=== PATIENT | male | born 1940 | race Caucasian/White ===

== ENCOUNTER 2016-08-12 16:34 | Inpatient (IN) ==
[2016-08-12] MEDS ORDERED: NS 1,000 ML IV SCH (17:24)
[2016-08-12 17:55] LABS: MANUAL DIFF NEEDED? NO
[2016-08-12 17:57] LABS: BASO% 0.4 % (0.0-0.8); EOS# 0.21 X1000 (0.0-0.7); HEMATOCRIT 42.4 % (42.0-52.0); HEMOGLOBIN 13.8 g/dL (14.0-18.0); IMM GRAN# 0.11 X1000 (0.0-0.04); LYMPH# 1.01 X1000 (1.2-3.4); LYMPH% 9.5 % (20.5-51.1); MCHC 32.5 g/dL (33-37); MCV 92.2 FL (81-99); MONO# 0.74 X1000 (0.11-0.59); MPV 8.8 FL (7.4-10.4); NEUT% 80.1 % (42.2-75.2); PLT 324 X1000 (130-400)
[2016-08-12 18:12] LABS: ALBUMIN 3.7 g/dL (3.5-5.0); CALCIUM 9.9 mg/dL (8.8-10.2); POTASSIUM 3.6 mmol/L (3.5-5.1); TOTAL BILIRUBIN 0.45 mg/dL (0.20-1.00); TOTAL PROTEIN 7.1 g/dL (6.3-8.3)
--- NOTE | 2016-08-12 19:32 | HISTORY AND PHYSICAL ---
HISTORY OF PRESENT ILLNESS: Mr. 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 Over the past 7-10 days, he has had intermittent episodes of nausea, vomiting and explosive, watery diarrhea. He had been treated for urinary tract infection with Levaquin while at the skilled nursing. He had made slow progress with physical therapy and was ambulating in the halls with the use of a walker. As stated earlier, he had a recent lumbar laminectomy. Over the past 48 hours, his nausea, vomiting and diarrhea have intensified. He has had a low-grade fever and chills. A flat and upright abdominal film obtained by the skilled nursing yesterday demonstrated no evidence of obstruction. PAST MEDICAL HISTORY: As above. PAST SURGICAL HISTORY: Appendectomy, cholecystectomy, umbilical hernia repair. Radical prostatectomy. Suprapubic catheter. Lumbar fusion. Lumbar laminectomy. ALLERGIES: Flagyl FAMILY HISTORY: Father in an MVA at age 52. His mother had coronary artery disease, status post NE and hypertension. SOCIAL HISTORY: He is a former smoker. He does consume alcoholic beverages. He is and lives with his spouse. MEDICATIONS: Aspirin 81 mg daily. Atorvastatin 40 mg at bedtime. Carvedilol 3.125 mg b.i.d. Plavix 75 mg daily. Dexilant 60 mg daily. Glipizide XL 10 mg b.i.d. Hydrochlorothiazide 12.5 mg daily. Eprosartan 300 mg daily. Mobic 15 mg daily. Paxil 10 mg daily. Victoza 1.8 mg daily. Zyloprim 300 mg daily. Gabapentin 100 mg t.i.d. Jardiance 1 p.o. daily. REVIEW OF SYSTEMS: General: He denies any recent weight gain or weight loss. HEENT: Wears glasses. He is hard of hearing. CARDIOVASCULAR: No chest pain, palpitations, or anginal equivalents. Pulmonary: No shortness of breath, PND, orthopnea. GI: No reflux, dysphagia, melena, hematochezia, change in bowel habits, or rectal bleeding. Endocrine: No polyuria, no polydipsia. Skin: No easy bruisability. : No leakage of urine with coughing or laughing. Neurologic: No migraines or seizures. Psychiatric: He has a history of depression. PHYSICAL EXAMINATION: GENERAL: This is a well-developed well-nourished 76-year-old gentleman in no apparent distress. VITAL SIGNS: Temperature 98.4 degrees, pulse 76, respirations 16, blood pressure 146/72. HEENT: Fundi with arteriolar wall thickening. Pupils equal, round, reactive to light. Extraocular eye movements intact. TMs without bullae. NECK: Supple. No masses, JVD or bruits. CARDIOVASCULAR: Regular rate and rhythm without murmur. LUNGS: Clear. ABDOMEN: Mild right upper quadrant and epigastric tenderness to deep palpation. No rebound or guarding. EXTREMITIES: Trace ankle edema. SKIN: No palpable purpura. AND RECTAL: Exam is deferred. NEUROLOGIC: Decreased light touch in the distal extremities bilaterally. LABORATORY: A CBC demonstrated white count 10.63, hemoglobin 13.8, hematocrit 42.4, and a platelet count of 324,000. CMP demonstrates the following: Sodium 132, potassium 3.6, chloride 92, BUN 27, creatinine 1.4, glucose 110, AST 20, ALT 12. Amylase 129, and lipase 155. ASSESSMENT: 1. Abdominal pain, secondary to mild pancreatitis. 2. Volume depletion, secondary to intractable nausea, vomiting, and diarrhea. 3. Type 2 diabetes mellitus, complicated by polyneuropathy. 4. Essential hypertension. 5. History of ischemic heart disease. PLAN: I am going to admit the patient to [facility]. I will begin normal saline at 125 mL per hour. We will follow strict input and output . I am going to hold him nothing per oral. We will check an ultrasound of the gallbladder in the morning. Gallstones are the most common etiology causing acute pancreatitis. I am also going to hold the hydrochlorothiazide. I will recheck an amylase, lipase and CMP in the morning. While he is on nothing by mouth, I am going to hold the glipizide and Jardiance. I will place him on patterned sugars and a Humulin R sliding scale. His blood pressure is stable and I will continue his current regimen of medications. At this point in time, I believe that admission to the hospital for fluid resuscitation and further management of the etiology of his mild pancreatitis is both reasonable and necessary. I anticipate that he will be in the hospital for at least 1 midnight and I will, therefore, place him in outpatient services with observation services. I will begin Lovenox 40 mg subcutaneously daily as deep venous thrombosis prophylaxis. cc: Franck Garcia MD
[2016-08-12] MEDS ORDERED: ZOFRAN IV PRN (20:01)
[2016-08-12] MEDS ORDERED: TRICOR PO ONE (20:01)
[2016-08-12] MEDS: ZOSYN 4.5 GM/NS 4.5 GM/100 ML IVPB IV SCH (22:00)
[2016-08-13] MEDS: COREG PO SCH ×3 (00:47→21:40)
[2016-08-13] MEDS: TYLENOL PO PRN (00:47)
[2016-08-13] MEDS: DESYREL PO PRN (00:47)
[2016-08-13] MEDS: LOVENOX SUBQ SCH ×2 (00:48→21:40)
[2016-08-13] MEDS: LIPITOR PO SCH ×2 (00:48→21:40)
[2016-08-13] MEDS ORDERED: NORCO-10 PO PRN (02:40)
[2016-08-13] MEDS ORDERED: MORPHINE IV PRN (02:41)
[2016-08-13] MEDS ORDERED: MORPHINE ONE (02:46)
[2016-08-13] MEDS: ZOSYN 4.5 GM/NS 4.5 GM/100 ML IVPB IV SCH (02:51)
[2016-08-13] MEDS: HUMULIN R SUBQ SCH ×4 (02:57→18:54)
[2016-08-13 03:43] LABS: ALBUMIN 3.4 g/dL (3.5-5.0); CALCIUM 9.2 mg/dL (8.8-10.2); POTASSIUM 3.5 mmol/L (3.5-5.1); TOTAL BILIRUBIN 0.44 mg/dL (0.20-1.00); TOTAL PROTEIN 6.2 g/dL (6.3-8.3)
[2016-08-13] MEDS ORDERED: NORCO-5 PO PRN (08:07)
--- NOTE | 2016-08-13 08:17 | Diag Imaging Result Doc PS360 ---
EXAM: US ABDOMEN-COMPLETE HISTORY: NAUSEA, VOMITING, PANCREATITIS TECHNIQUE: Transabdominal COMMENT: The visualized portion of the body of the pancreas is unremarkable, the remainder is obscured. The liver is hyperechoic and very poor detail is seen in portions of liver due to the patient's body habitus. There is some sediment and soft stones present in the neck of the gallbladder. There is no sonographic Mccray sign. There is antegrade flow in the portal vein. There is no evidence of biliary dilatation the common bile duct measuring 6 mm. The spleen is not enlarged. There are no abnormal fluid collections. There is no evidence of hydronephrosis. There is a 1.8 cm cyst in the upper pole of the left kidney. IMPRESSION: Hepatic steatosis. Cholelithiasis. Electronically signed by Jacques Chu 08/13/2016 8:15 AM
[2016-08-13] MEDS ORDERED: INSULIN PEN NEEDLES ONE (08:28)
--- NOTE | 2016-08-13 08:29 | PROGRESS NOTE ---
DATE: 08/13/2016 SUBJECTIVE: Mr. Montaño continues with persistent nausea and mild right upper quadrant and epigastric discomfort. The ultrasound of the abdomen demonstrates gallstones without common bile duct dilatation. Lipase is still mildly elevated at 159. Blood sugars are ranging from 110-120. He denies any polyuria, polydipsia or episodes of symptomatic hypoglycemia. OBJECTIVE: Vital signs: Temperature 98.1 degrees, pulse 65, respirations 20, BP 117/60. CV: Regular rate and rhythm. Lungs: Clear. Abdomen: Mild epigastric and right upper quadrant tenderness to deep palpation. No rebound or guarding. ASSESSMENT AND PLAN: 1. Mild pancreatitis. We will continue to hold him on nothing by mouth and will cautiously rehydrate him with normal saline. We will use Zofran as needed for nausea and vomiting. Ultrasound of the gallbladder demonstrated gallstones without common bile duct dilatation. We will proceed with a HIDA scan with cholecystokinin. I suspect that the gallbladder is the etiology of the mild pancreatitis, and that he will ultimately need a cholecystectomy. 2. Hypertension. His blood pressure is stable. We will continue his current regimen of medications. 3. Type 2 [id number] diabetes mellitus complicated by polyneuropathy. We will continue pattern sugars, Humulin R sliding scale, and the Victoza. I will continue to hold the glipizide and Jardiance. cc: Franck Garcia MD
[2016-08-13] MEDS ORDERED: VICTOZA SUBQ SCH (09:00)
[2016-08-13] MEDS ORDERED: PLAVIX PO SCH (09:00)
[2016-08-13] MEDS ORDERED: PAXIL PO SCH (09:00)
[2016-08-13] MEDS ORDERED: WELCHOL PO SCH (09:00)
[2016-08-13] MEDS ORDERED: STERILE WATER INJ. ONE (14:31)
[2016-08-13] MEDS ORDERED: NS 500 ML ONE (14:36)
--- NOTE | 2016-08-13 15:57 | Diag Imaging Result Doc PS360 ---
EXAM: HIDA SCAN W/ EJECTION FRACTION - 08/13/2016 HISTORY: RUQ ABDOMINAL PAIN WITH GALLSTONES TECHNIQUE: Exam performed using 5.4 mCi technetium 99m Choletec ministration intravenously. COMPARISON: None. FINDINGS: There is prompt tracer uptake by the liver with relatively prompt tracer excretion by the liver and appearance of tracer into small bowel. There is mildly delayed visualization of the gallbladder, with gallbladder activity first visible about 32 minutes following tracer ministration. Gallbladder ejection fraction is calculated following administration of by mouth liquid ensure. The ejection fraction is calculated at 96%. IMPRESSION: Mildly delayed visualization of gallbladder. Normal gallbladder ejection fraction at 96%. Electronically signed by Jace Gonzalez 08/13/2016 3:55 PM
--- NOTE | 2016-08-13 17:39 | PROGRESS NOTE ---
DATE: 08/13/2016 SUBJECTIVE: Mr. Montaño was admitted to [facility] with intractable nausea, vomiting, and diarrhea. He was noted to have mild pancreatitis. His lipase has increased from 155 to 159 today. An ultrasound of the gallbladder demonstrated steatosis and cholelithiasis. He did have sediment and soft stones present in the neck of the gallbladder but there was no evidence of biliary dilatation. A follow-up HIDA scan with CCK demonstrated normal gallbladder ejection fraction of 96%. He has been taking Jardiance and HCTZ. OBJECTIVE: Vital Signs: BP 123/81, pulse 82, respirations 18. Cardiovascular: Regular rate and rhythm. Lungs: Clear. Abdomen: Mild epigastric and right upper quadrant tenderness to deep palpation. No rebound or guarding. ASSESSMENT AND PLAN: 1. Acute pancreatitis. He does have soft gallstones and sediment. There is no common bile duct dilatation. A HIDA scan with CCK was within normal limits. At this point there is no conclusive evidence that the pancreatitis is secondary to the gallstones. He is taking hydrochlorothiazide and Jardiance which can both cause pancreatitis. I will stop both of those medicines. I will advance him to a GI soft diet and recheck a lipase in the morning. 2. Type 2 [id number] diabetes mellitus complicated by polyneuropathy. I will continue pattern sugars and Humulin R sliding scale. I will stop the Jardiance and Victoza because of the nausea. We will adjust his medicines as indicated. 3. Given the patient's comorbid conditions and clinical presentation, I anticipate that further hospitalization is necessary. I anticipate that he will be in the hospital for at least 2 midnights and I will, therefore, place him in inpatient status. cc: Franck Garcia MD
[2016-08-13] MEDS: ROBAXIN PO SCH ×2 (18:42→18:47)
[2016-08-13] MEDS: WELCHOL PO SCH ×2 (18:43→18:47)
[2016-08-13] MEDS: ASPIRIN EC PO SCH (18:44)
[2016-08-13] MEDS: AVAPRO PO SCH (18:45)
[2016-08-13] MEDS: ZYLOPRIM PO SCH (18:45)
[2016-08-13] MEDS: TRICOR PO SCH (18:46)
[2016-08-13] MEDS: DEXILANT PO SCH (18:46)
[2016-08-13] MEDS: PAXIL PO SCH (18:49)
[2016-08-14] MEDS: HUMULIN R SUBQ SCH ×5 (00:49→21:16)
[2016-08-14 07:12] LABS: LIPASE 128 U/L (13-60)
[2016-08-14] MEDS: WELCHOL PO SCH ×4 (08:38→16:26)
[2016-08-14] MEDS: PAXIL PO SCH (08:38)
[2016-08-14] MEDS: ROBAXIN PO SCH ×4 (08:39→16:16)
[2016-08-14] MEDS: DEXILANT PO SCH (08:40)
[2016-08-14] MEDS: ASPIRIN EC PO SCH (08:40)
[2016-08-14] MEDS: TRICOR PO SCH (08:40)
[2016-08-14] MEDS: ZYLOPRIM PO SCH (08:40)
[2016-08-14] MEDS: COREG PO SCH ×2 (08:40→21:16)
[2016-08-14] MEDS: AVAPRO PO SCH (08:40)
[2016-08-14] MEDS ORDERED: VITAMIN D PO SCH (09:00)
--- NOTE | 2016-08-14 09:15 | PROGRESS NOTE ---
DATE: 08/14/2016 SUBJECTIVE: Mr. Montaño was admitted to [facility] with intractable nausea, vomiting and diarrhea. He was noted to have mild pancreatitis. His lipase is trending down. His lipase was 128 this morning. He is not having any further nausea or vomiting, but did have some intermittent diarrhea this morning. He seems to be tolerating GI soft diet. He does have a history of type 2 diabetes mellitus. He had been taking glipizide, Jardiance for his underlying diabetes. Jardiance can cause pancreatitis, and we stopped the Jardiance. A random blood sugar this morning was 157 with a corresponding insulin level 7.2. It appears that he is making inadequate amounts of insulin and will now require insulin therapy for the management of his underlying sugars. He has had a recent lumbar laminectomy and is able to walk short distances with assistance. He is still not independent from a physical standpoint. He had been undergoing rehab at [facility] in [place], [place]. OBJECTIVE: Vital Signs: Temperature 98.1 degrees, pulse 66, respirations 18, BP 150/72. CV: Regular rate and rhythm. Lungs: Clear. Abdomen: Mild epigastric tenderness to deep palpation. No rebound or guarding. He has good bowel sounds. ASSESSMENT AND PLAN: 1. Acute pancreatitis. Clinically he is better. An ultrasound of the gallbladder demonstrated gallstones without any evidence of common bile duct dilatation. A HIDA scan with cholecystokinin was unremarkable. I suspect that the pancreatitis was due to underlying medications including hydrochlorothiazide and Jardiance. We will continue a gastrointestinal soft diet and monitor him clinically. 2. Type 2 insulin-dependent diabetes mellitus. We will begin Novolin 70/30 five units subcutaneously twice daily with meals. I would like to see his morning sugars in the range of 80-120 and his postprandial sugars less than 140. As he is not producing adequate amounts of insulin, I will stop the glipizide. 3. Lumbar spinal stenosis status post recent lumbar surgery. We will continue physical therapy. If he is not able to achieve independence, we will make a referral for him to be evaluated by [facility]. If he is able to make appropriate response to physical therapy, we will make arrangements for him to have outpatient physical therapy. cc: Franck Garcia MD
[2016-08-14] MEDS: HUMULIN 70/30 SUBQ SCH (16:26)
[2016-08-14] MEDS: TYLENOL PO PRN (21:16)
[2016-08-14] MEDS: LIPITOR PO SCH (21:16)
[2016-08-15] MEDS: LOVENOX SUBQ SCH ×2 (03:17→20:49)
[2016-08-15] MEDS: HUMULIN R SUBQ SCH ×3 (06:03→17:22)
[2016-08-15] MEDS: HUMULIN 70/30 SUBQ SCH ×2 (06:46→17:22)
[2016-08-15] MEDS: WELCHOL PO SCH ×3 (08:33→17:23)
[2016-08-15] MEDS: ROBAXIN PO SCH (08:33)
[2016-08-15] MEDS: TRICOR PO SCH (08:34)
[2016-08-15] MEDS: DEXILANT PO SCH (08:34)
[2016-08-15] MEDS: ZYLOPRIM PO SCH (08:34)
[2016-08-15] MEDS: PAXIL PO SCH (08:35)
[2016-08-15] MEDS: ASPIRIN EC PO SCH (08:35)
--- NOTE | 2016-08-15 10:57 | PROGRESS NOTE ---
DATE: 08/15/2016 SUBJECTIVE: He is feeling better. He was sitting up in a lounge chair. He has no more abdominal pain. He is eating a soft diet and tolerating it well. OBJECTIVE: Vital Signs: He remains afebrile with temperature 98.1 degrees, pulse 86, respirations 20, blood pressure 85 to 150 over 68 to 72. Lungs: Clear in all lung antonio. Cardiovascular: Regular rhythm and rate, without murmur or S3. Abdomen: Soft. Skin: Warm and dry. LABORATORY DATA: Blood sugar 160, 191, 183. No new lab today. ASSESSMENT AND PLAN: 1. Acute pancreatitis, clinically better. Ultrasound of the gallbladder demonstrated gallstones without any evidence of common bile duct dilatation. HIDA scan with cholecystokinin was unremarkable. Suspect pancreatitis due to underlying medications, including hydrochlorothiazide and Jardiance, which have been stopped. Continue a soft diet, which he is tolerating. 2. Diabetes mellitus, type 2. Sugars appear under good control. He was begun on Novolin 70/30, 5 units subcutaneous b.i.d. with meals and will adjust that. 3. Lumbar spinal stenosis, status post recent lumbar surgery. He has left foot drop. 4. Weakness. Make sure he is walking around and strength is good. Continue physical therapy. REVIEW OF MEDICATIONS: He is on trazodone 50 mg at bedtime. Vitamin D at 50,000 units, I think, once a week. Paxil 10 mg a day. Robaxin 750 mg p.o. t.i.d. Avapro 300 mg p.o. daily. I may cut down his Avapro to 150. Insulin 70/30, 5 units before every meal. He has hydrocodone 5 mg for pain. TriCor 48 mg p.o. daily. I think it would be worthwhile to check his cholesterol profile and his triglycerides. Also, we will check his thyroid T4 and TSH, and B12 and folate. cc: MD Franck Frye MD
[2016-08-15] MEDS: COREG PO SCH ×2 (11:49→21:00)
[2016-08-15 16:41] LABS: URINE CULTURE NEEDED? NO; URINE SOURCE CLEAN CATCH
[2016-08-15 16:45] LABS: BILIRUBIN URINE NEGATIVE (NEGATIVE); BLOOD URINE NEGATIVE (NEGATIVE); COLOR STRAW; GLUCOSE URINE TRACE mg/dL (NEGATIVE); LEUKOCYTES URINE NEGATIVE (NEGATIVE); NITRITE URINE NEGATIVE (NEGATIVE); PH URINE 5.5; PROTEIN URINE NEGATIVE (NEGATIVE); SP GRAVITY URINE 1.005; TURBIDITY URINE CLEAR (CLEAR); UROBILINOGEN URINE NORMAL (NORMAL)
[2016-08-15 16:48] LABS: UR EPITHELIAL CELLS <10 /HPF (<10); URINE BACTERIA NEGATIVE /HPF; URINE MICRO REVIEW NEEDED? YES; URINE RBC <10 /HPF (<10); URINE WBC <10 /HPF (<10)
[2016-08-15] MEDS: DESYREL PO PRN (20:49)
[2016-08-15] MEDS: LIPITOR PO SCH (20:49)
[2016-08-16] MEDS: HUMULIN R SUBQ SCH ×4 (00:47→16:24)
[2016-08-16] MEDS: TYLENOL PO PRN (01:03)
[2016-08-16 07:07] LABS: HEMOGLOBIN A1C 6.3 % (4.8-6.0)
[2016-08-16 07:34] LABS: AGAP 14; ALBUMIN 3.1 g/dL (3.5-5.0); ALKALINE PHOSPHATASE 97 U/L (32-122); AMYLASE 88 U/L (20-200); BUN 37 mg/dL (8-22); CALCIUM 9.2 mg/dL (8.8-10.2); CHLORIDE 106 mmol/L (98-107); COSMO 292; GOT 12 U/L (10-34); GPT 8 U/L (10-44); HDL 35 mg/dL (35-55); LDL 36 mg/dL; LIPASE 110 U/L (13-60); POTASSIUM 4.1 mmol/L (3.5-5.1); SODIUM 141 mmol/L (136-145); TCO2 21 mmol/L (25-35); TOTAL BILIRUBIN 0.27 mg/dL (0.20-1.00); TOTAL PROTEIN 5.8 g/dL (6.3-8.3); TRIGLYCERIDES 207 mg/dL (39-160); VLDL 41 mg/dL
[2016-08-16 08:08] LABS: FREE T4 1.29 ng/dL (0.93-1.70)
[2016-08-16] MEDS: PAXIL PO SCH (09:48)
[2016-08-16] MEDS: WELCHOL PO SCH ×3 (09:48→16:35)
[2016-08-16] MEDS: DEXILANT PO SCH (09:48)
[2016-08-16] MEDS: ASPIRIN EC PO SCH (09:48)
[2016-08-16] MEDS: COREG PO SCH ×2 (09:48→20:08)
[2016-08-16] MEDS: ZYLOPRIM PO SCH (09:48)
[2016-08-16] MEDS: TRICOR PO SCH (09:49)
[2016-08-16] MEDS: HUMULIN 70/30 SUBQ SCH ×2 (09:50→16:35)
--- NOTE | 2016-08-16 11:41 | PROGRESS NOTE ---
DATE: 08/16/2016 SUBJECTIVE: Mr. Montaño is feeling better. He said I am ready to go home. He does feel stronger. He is eating well. He has a good appetite. OBJECTIVE: Vital signs: Temp 97.7 degrees, pulse 72, respirations 20, blood pressure 114/55. Neck: CVP less than 6 cm. Lungs: Clear in all lung antonio. Cardiovascular: Regular rhythm and rate without murmur or S3. Abdomen: Soft. Skin: Warm and dry. : Good urine output, 3.5 L. LABS: No new CBC but electrolytes today. Sodium 141, potassium 4.1, chloride 106, bicarb 21, BUN 23, creatinine 1.3. Blood sugar 173, 135, 134, so very good. ASSESSMENT AND PLAN: 1. Acute pancreatitis. Clinically better. Ultrasound of the gallbladder demonstrated gallstones. No evidence of common bile duct dilatation. HIDA scan with cholecystokinin was unremarkable. Suspect medications involved and have adjusted those medications. Stop the hydrochlorothiazide and the Jardiance. Blood sugars appear well-controlled. 2. Diabetes mellitus type 2. Sugars is under good control. Made some adjustments. He is on Novolin 70/30 5 units subcutaneously b.i.d. 3. Lumbar spinal stenosis, aware. 4. General weakness, deconditioning, improving. Wants to get home health. He wants to get [facility] involved. Serum creatinine is 1.3. Reviewed his orders; I do not see any changes. cc: MD Franck Frye MD
[2016-08-16] MEDS: LIPITOR PO SCH (20:08)
[2016-08-16] MEDS: LOVENOX SUBQ SCH (20:08)
[2016-08-17] MEDS: HUMULIN R SUBQ SCH ×3 (01:27→11:25)
[2016-08-17 07:49] VITALS: BP 147/73
[2016-08-17] MEDS: WELCHOL PO SCH ×2 (09:07→12:50)
[2016-08-17] MEDS: PAXIL PO SCH (09:07)
[2016-08-17] MEDS: COREG PO SCH (09:07)
[2016-08-17] MEDS: TRICOR PO SCH (09:07)
[2016-08-17] MEDS: ZYLOPRIM PO SCH (09:07)
[2016-08-17] MEDS: DEXILANT PO SCH (09:07)
[2016-08-17] MEDS: ASPIRIN EC PO SCH (09:07)
[2016-08-17] MEDS: HUMULIN 70/30 SUBQ SCH (09:11)
[2016-08-17] MEDS ORDERED: INSULIN PEN NEEDLES ONE (14:33)
[2016-08-17] MEDS ORDERED: HUMULIN 70/30 SUBQ SCH (17:00)
[2016-08-18] MEDS ORDERED: CELEXA PO SCH (09:00)
--- NOTE | 2016-08-19 06:22 | DISCHARGE SUMMARY ---
ADMISSION DATE: 08/12/2016 DISCHARGE DATE: 08/17/2016 DISCHARGE DIAGNOSES: 1. Acute pancreatitis. 2. Type 2 insulin-dependent diabetes mellitus complicated by diabetic polyneuropathy. 3. Essential hypertension. 4. Atherosclerotic heart disease without angina. 5. Chronic gout. 6. Gastroesophageal reflux disease. 7. Chronic low back pain secondary to lumbar spinal stenosis, status post recent lumbar laminectomy. DISCHARGE INSTRUCTIONS: 1. Return to clinic in 1 week to see me, Dr. Miguel Garcia, in anticipation of a transition of care visit. 2. Activity as tolerated. 3. An 1800 calorie, ADA, bland diet. MEDICATIONS: Atorvastatin 40 mg at bedtime, Coreg 3.125 mg b.i.d., vitamin D2 50,000 units Wednesday, Wednesday, Wednesday, [place] 5 one q.4-6 hours p.r.n. pain, Humulin 70/30 10 units subcutaneously b.i.d., Paxil 20 mg daily, fenofibrate 48 mg daily, meloxicam 15 mg daily, eprosartan 300 mg daily, Plavix 75 mg daily, allopurinol 300 mg daily, Dexilant 60 mg daily, Robaxin 750 mg t.i.d. p.r.n., aspirin 81 mg daily, Welchol 625 mg t.i.d. HISTORY OF PRESENT ILLNESS AND HOSPITAL COURSE: Mr. Montaño presented to the ER complaining of intractable nausea, vomiting, and right upper quadrant abdominal pain. The patient was initially held n.p.o. We cautiously rehydrated him with normal saline, and treated the nausea and vomiting on a p.r.n. basis with Zofran. He was felt to have a mild case of pancreatitis. His initial lipase was 155. An ultrasound of the gallbladder demonstrated gallstones without common bile duct dilatation or generalized inflammation of the gallbladder. A followup HIDA scan demonstrated a normal ejection fraction of 95%. We felt that several medicines including Jardiance and hydrochlorothiazide had precipitated the pancreatitis. We stopped the Jardiance and hydrochlorothiazide. We continued fluid resuscitation and as his lipase trended downward, we advanced his diet as tolerated. He was tolerating a bland diet without nausea, vomiting, or abdominal pain. He does have a history of type 2 insulin-dependent diabetes mellitus complicated by polyneuropathy. We did a random blood sugar. He was noted to have inadequate amounts of insulin. His random glucose was 157 with a corresponding insulin level of 7.2. We started Novolin 70/30 5 units subcutaneously b.i.d. and titrated upward during his hospitalization. His blood sugars were consistently less than 160 at the time of discharge. His most recent hemoglobin A1c was 6.3. He does have a longstanding history of hypertension. His blood pressure remained well controlled. He denied any chest pain, palpitations, or anginal equivalents. Having reached maximum hospital benefit, the patient was discharged in stable condition. cc: Franck Garcia MD
== END 2016-08-17 15:27 | disposition home health service (06) ==
LOC: SUPCPDRO → 3N 16:34 → ED 16:34 → 3N 08-13 12:17
PROVIDERS: ADMIT Internal Medicine; ATTEND Internal Medicine

== ENCOUNTER 2016-09-30 20:59 | Inpatient (IN) ==
[2016-09-30] MEDS ORDERED: ASPIRIN PO STA (21:40)
--- NOTE | 2016-09-30 22:04 | ED EKG INTERP ---
This chart was entered by Antonia Garrison Scribe, acting as scribe for Arya Loza MD. EKG Interpretation - EKG Time of EKG reading by physician:: 21:22 EKG Read and Signed by:: Arya Loza EKG Interpretation (*Must complete 3 of following elements*): Normal Rate: 90 Rhythm: NSR ST Wave: non-specific ST changes Comments: Abnormal ECG Attestation - Physician/ TONY Attestation Patient care was provided by Advanced Practice Provider:: No The physician spent face to face time with patient:: Yes Advanced Practice Provider documentation review:: Supervising physician onsite and consulted in the evaluation and care of this patient. The physician did have a face to face encounter with the patient. This chart was documented by the indicated scribe, (Antonia Garrison Scribe) and accurately reflects the services I performed and decisions made by me, Arya Loza MD, as attested by the provider's signature.
[2016-09-30] MEDS ORDERED: DILAUDID IV ONE (22:10)
[2016-09-30 22:11] LABS: MANUAL DIFF NEEDED? NO
[2016-09-30] MEDS ORDERED: ZOFRAN IV ONE (22:11)
[2016-09-30 22:14] LABS: BASO% 0.4 % (0.0-0.8); EOS# 0.22 X1000 (0.0-0.7); EOS% 2.8 % (0.0-10.0); HEMATOCRIT 37.7 % (42.0-52.0); HEMOGLOBIN 12.1 g/dL (14.0-18.0); IMM GRAN# 0.08 X1000 (0.0-0.04); LYMPH# 1.09 X1000 (1.2-3.4); MCH 30.4 PG (27-31); MCHC 32.1 g/dL (33-37); MCV 94.7 FL (81-99); MONO# 0.66 X1000 (0.11-0.59); MONO% 8.5 % (1.7-9.3); MPV 9.9 FL (7.4-10.4); NEUT% 73.3 % (42.2-75.2); PLT 224 X1000 (130-400); RBC 3.98 XMIL (4.7-6.1)
--- NOTE | 2016-09-30 22:17 | Diag Imaging Result Doc PS360 ---
EXAM: CHEST-PORTABLE HISTORY: CP TECHNIQUE: COMPARISON: None. FINDINGS: The lungs are well expanded. The heart is not enlarged. The vessels are not distended. No infiltrates. No plural effusions identified. IMPRESSION: Negative exam. Electronically signed by Tonny Tran 09/30/2016 10:15 PM
[2016-09-30 22:23] LABS: INR 0.99; PROTIME 10.4 Seconds (9.2-11.7); PTT 27.9 Seconds (22.0-36.0)
--- NOTE | 2016-09-30 22:35 | Diag Imaging Result Doc PS360 ---
EXAM: HEAD W/O CONTRAST HISTORY: severe headache TECHNIQUE: CT brain without. Dose reduction protocol. COMPARISON: None. FINDINGS: No parenchymal hemorrhage. No epidural or subdural hematoma. No subarachnoid hemorrhage. No mass identified on this noncontrasted exam. No hydrocephalus. There is opacification of the right sphenoid sinus.. IMPRESSION: 1.No hemorrhage. Negative brain CT without contrast. 2.Right sphenoid sinusitis. Electronically signed by Tonny Tran 09/30/2016 10:33 PM
[2016-09-30] MEDS ORDERED: LABETALOL IV ONE (22:48)
[2016-09-30 23:11] LABS: AGAP 16; ALBUMIN 3.3 g/dL (3.5-5.0); ALKALINE PHOSPHATASE 112 U/L (32-122); BUN 19 mg/dL (8-22); CALCIUM 8.1 mg/dL (8.8-10.2); CHLORIDE 105 mmol/L (98-107); CK PROFILE 99 U/L (24-204); COSMO 291; GOT 14 U/L (10-34); GPT 12 U/L (10-44); LIPASE 29 U/L (13-60); POTASSIUM 3.5 mmol/L (3.5-5.1); SODIUM 143 mmol/L (136-145); TCO2 22 mmol/L (25-35); TOTAL BILIRUBIN 0.33 mg/dL (0.20-1.00); TOTAL PROTEIN 6.3 g/dL (6.3-8.3)
[2016-09-30 23:23] LABS: MAGNESIUM 0.8 mg/dL (1.5-2.7)
[2016-09-30] MEDS ORDERED: MAGNESIUM SULFATE 2 GM/S.W.I. 2 GM/50 ML IVPB IV ONE (23:26)
--- NOTE | 2016-10-01 01:29 | PROVIDER DOCUMENTATION ---
This chart was entered by Antonia Garrison Scribe, acting as scribe for Arya Loza MD. HPI-Chest Pain - General Chief Complaint: Chest Pain Stated Complaint: CHEST PAIN/DISORIENTED Time Seen by Provider: 09/30/16 21:34 Source: patient, family () Allergies/Adverse Reactions: Patient Allergies Allergy/AdvReac Type Severity Reaction Status Date / Time metronidazole [From Flagyl] Allergy NAUSEA/VOMI Verified 08/12/16 16:55 TING Home Medications: Home Medication List Medication Instructions Recorded Confirmed Last Taken Type Allopurinol [Zyloprim] 300 mg PO DAILY 09/12/12 08/12/16 08/02/13 09:00 History Clopidogrel Bisulfate [Plavix] 75 mg PO DAILY 09/12/12 08/12/16 08/11/16 History Irbesartan [Avapro] 300 mg PO DAILY 09/12/12 08/12/16 08/11/16 History Meloxicam 15 mg PO DAILY 09/12/12 08/12/16 08/11/16 History Dexlansoprazole [Dexilant] 60 mg PO DAILY 08/02/13 08/12/16 08/11/16 History Aspirin [Aspirin EC] 81 mg PO DAILY 08/12/16 08/12/16 08/11/16 History Colesevelam HCl [Welchol] 625 mg PO TID 08/12/16 08/12/16 08/11/16 History Methocarbamol [Robaxin-750] 750 mg PO TID 08/12/16 08/12/16 08/11/16 History ATORVAstatin [Lipitor] 40 mg PO HS tablet 08/17/16 Unknown Rx Carvedilol [Coreg] 3.125 mg PO BID tablet 08/17/16 Unknown Rx Ergocalciferol (Vitamin D2) 50,000 unit PO MoWeFr capsule 08/17/16 Unknown Rx [Vitamin D] Fenofibrate [Tricor] 48 mg PO DAILY tablet 08/17/16 Unknown Rx Hydrocodone/APAP 5 mg/325 mg 1 each PO Q4-6H PRN PRN #0 tablet 08/17/16 Unknown Rx [Bastrop-5] Insulin Humulin 70/30 [Humulin 10 unit SUBQ BID CC #1 insuln.pen 08/17/16 Unknown Rx 70/30] Paroxetine [Paxil] 20 mg PO DAILY #30 tablet 08/17/16 Unknown Rx - History of Present Illness-CP Nature of Presenting Problem: 76 Y/O M presents to ED with Chest Pain. Pt states that he had a severe headache with chest pain that began 3-4 hours clyde and pt does have a cardaic hx with stints. When asking the PT questions, pt states a lot of I don't know, or he is unsure of it. Pt his diabetic, states SOB, heartburn and speech difficulty. Location: reports: central Chest Pain Radiation: reports: no radiation Quality of Pain: reports: aching Severity in ED: moderate Onset/Duration: just prior to arrival, 4-6 hours ago Timing: still present Context/Activities at Onset: reports: none Associated Symptoms: reports: headache, shortness of breath Nitro Today/Relief: no nitro taken today Aspirin Treatment Today: no aspirin today Review of Systems - Adult - REVIEW OF SYSTEMS - ADULT Constitutional: denies: chills, fever Eyes: reports: no symptoms reported Ears, Nose, Mouth & Throat: reports: no symptoms reported Cardiovascular: reports: chest pain Respiratory: reports: shortness of breath. denies: cough Gastrointestinal: denies: abdominal pain, diarrhea, nausea, vomiting Genitourinary: reports: no symptoms reported Musculoskeletal: reports: no symptoms reported Integumentary: reports: no symptoms reported Neurological: reports: headache/migraines, slurred speech. denies: dizziness/ vertigo, loss of balance Psychiatric: reports: no symptoms reported Endocrine: reports: no symptoms reported Hematologic/Lymphatic: reports: no symptoms reported Allergic/Immunologic: reports: no symptoms reported All Other Systems: Reviewed and Negative Past History - Adult - PAST MEDICAL HISTORY-ADULT Review of Records: reports: Old Records Reviewed, Nursing Assessment Review, Medications Reviewed, Social history reviewed & non-contributory. - SOCIAL HISTORY Smoking: quit greater than 1 year Substance Use: none/never Alcohol Use Frequency: never Physical Exam-General - CONSTITUTIONAL General Appearance: alert, no apparent distress - EYES Eyes: pink conjunctivae - HEAD, EARS, NOSE, MOUTH & THROAT HENMT: moist mucous membranes, normal ENT inspection, TMs normal, pharynx normal - NECK Neck: full range of motion, supple, normal inspection - RESPIRATORY Respiratory: lungs clear, normal breath sounds - CARDIOVASCULAR Cardiovascular: regular rate, rhythm, no edema, no gallop, no JVD, no murmur - GASTROINTESTINAL (ABDOMEN) Abdominal Exam: non tender, soft - LYMPHATIC Lymphatic: no adenopathy - MUSCULOSKELETAL Back Exam: no CVA tenderness, no vertebral tenderness Extremity: non-tender, other (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) - SKIN Integumentary: normal turgor, warm/dry - PSYCHIATRIC Psych/Mental Status: normal mood/affect, oriented x 3 Progress - PLAN OF CARE/RESULTS Progress/Plan/Lab Results: Vital Signs - 8 hr 09/30/16 21:27 09/30/16 21:37 09/30/16 21:45 Temperature 98.7 F Pulse Rate 91 H 86 84 Respiratory Rate 20 13 19 Blood Pressure 193/88 206/107 195/123 O2 Sat by Pulse Oximetry 97 96 09/30/16 22:01 09/30/16 22:29 09/30/16 22:30 Temperature Pulse Rate 92 H 94 H 85 Respiratory Rate 17 12 19 Blood Pressure 216/105 189/104 190/103 O2 Sat by Pulse Oximetry 98 97 96 09/30/16 22:45 09/30/16 22:46 09/30/16 23:00 Temperature Pulse Rate 80 88 70 Respiratory Rate 23 20 15 Blood Pressure 192/138 192/138 174/107 O2 Sat by Pulse Oximetry 96 97 94 L 09/30/16 23:05 09/30/16 23:12 09/30/16 23:13 Temperature Pulse Rate 69 70 70 Respiratory Rate 15 16 15 Blood Pressure 182/96 185/85 185/85 O2 Sat by Pulse Oximetry 94 L 93 L 93 L 09/30/16 23:20 09/30/16 23:21 09/30/16 23:27 Temperature Pulse Rate 67 68 67 Respiratory Rate 14 21 19 Blood Pressure 172/88 172/88 172/85 O2 Sat by Pulse Oximetry 95 93 L 93 L 09/30/16 23:29 09/30/16 23:30 09/30/16 23:46 Temperature Pulse Rate 69 66 66 Respiratory Rate 23 17 13 Blood Pressure 172/85 173/83 160/104 O2 Sat by Pulse Oximetry 93 L 94 L 96 10/01/16 00:00 10/01/16 00:15 10/01/16 00:31 Temperature Pulse Rate 67 71 71 Respiratory Rate 16 15 24 Blood Pressure 150/84 159/87 160/70 O2 Sat by Pulse Oximetry 94 L 95 97 10/01/16 00:45 10/01/16 00:51 10/01/16 01:00 Temperature Pulse Rate 73 70 70 Respiratory Rate 17 18 15 Blood Pressure 149/71 149/71 139/72 O2 Sat by Pulse Oximetry 96 95 95 Laboratory Results - last 24 hr 09/30/16 09/30/16 09/30/16 21:40 21:40 21:40 WBC 7.81 RBC 3.98 L Hgb 12.1 L Hct 37.7 L MCV 94.7 MCH 30.4 MCHC 32.1 L RDW Std Deviation 15.8 H Plt Count 224 MPV 9.9 Immature Gran % (Auto) 1.0 H Neut % (Auto) 73.3 Lymph % (Auto) 14.0 L Garden % (Auto) 8.5 Eos % (Auto) 2.8 Baso % (Auto) 0.4 Immature Gran # (Auto) 0.08 H Neut # (Auto) 5.73 Lymph # (Auto) 1.09 L Garden # (Auto) 0.66 H Eos # (Auto) 0.22 Baso # (Auto) 0.03 PT INR PTT (Actin FS) D-Dimer 2.54 H Sodium 143 Potassium 3.5 Chloride 105 Carbon Dioxide 22 L Anion Gap 16 BUN 19 Creatinine 1.1 Estimated GFR/1.73 m2 > 60 BUN/Creatinine Ratio 17 Glucose 175 H Calculated Osmolality 291 Calcium 8.1 L Magnesium 0.8 L* Total Bilirubin 0.33 AST 14 ALT 12 Alkaline Phosphatase 112 Creatine Kinase 99 Troponin T [id number]-Ydwfstbwjos Pept Total Protein 6.3 Albumin 3.3 L Globulin 3.0 Albumin/Globulin Ratio 1.1 Lipase 29 09/30/16 09/30/16 09/30/16 21:40 21:40 21:40 WBC RBC Hgb Hct MCV MCH MCHC RDW Std Deviation Plt Count MPV Immature Gran % (Auto) Neut % (Auto) Lymph % (Auto) Garden % (Auto) Eos % (Auto) Baso % (Auto) Immature Gran # (Auto) Neut # (Auto) Lymph # (Auto) Garden # (Auto) Eos # (Auto) Baso # (Auto) PT 10.4 INR 0.99 PTT (Actin FS) 27.9 D-Dimer Sodium Potassium Chloride Carbon Dioxide Anion Gap BUN Creatinine Estimated GFR/1.73 m2 BUN/Creatinine Ratio Glucose Calculated Osmolality Calcium Magnesium Total Bilirubin AST ALT Alkaline Phosphatase Creatine Kinase Troponin T < 0.010 [id number]-Q-Plrshwvpaie Pept 1287 H Total Protein Albumin Globulin Albumin/Globulin Ratio Lipase 10/01/16 10/01/16 00:35 00:35 WBC RBC Hgb Hct MCV MCH MCHC RDW Std Deviation Plt Count MPV Immature Gran % (Auto) Neut % (Auto) Lymph % (Auto) Garden % (Auto) Eos % (Auto) Baso % (Auto) Immature Gran # (Auto) Neut # (Auto) Lymph # (Auto) Garden # (Auto) Eos # (Auto) Baso # (Auto) PT INR PTT (Actin FS) D-Dimer Sodium Potassium Chloride Carbon Dioxide Anion Gap BUN Creatinine Estimated GFR/1.73 m2 BUN/Creatinine Ratio Glucose Calculated Osmolality Calcium Magnesium Total Bilirubin AST ALT Alkaline Phosphatase Creatine Kinase 88 Troponin T < 0.010 Vcx-O-Osflopxflad Pept Total Protein Albumin Globulin Albumin/Globulin Ratio Lipase Orders Category Date Time Status Cardiac Monitoring DIRECTED Care 09/30/16 21:40 Active Saline Loc NOW Care 09/30/16 21:40 Active CHEST-PORTABLE [RAD] Stat Exams 09/30/16 21:40 Completed HEAD W/O CONTRAST [CT] Stat Exams 09/30/16 22:07 Completed CBC WITH ELECTRONIC DIFF [HEME] Stat Lab 09/30/16 21:40 Completed CK PROFILE [SP CHEM] Stat Lab 09/30/16 21:40 Completed CK PROFILE [SP CHEM] Stat Lab 10/01/16 00:35 Completed COMPREHENSIVE METABOLIC PANEL [CHEM] Stat Lab 09/30/16 21:40 Completed D-DIMER [CHEM] Stat Lab 09/30/16 21:40 Completed LIPASE [CHEM] Stat Lab 09/30/16 21:40 Completed MAGNESIUM [CHEM] Stat Lab 09/30/16 21:40 Completed PRO B-NATRIURETIC PEPTIDE Stat Lab 09/30/16 21:40 Completed PROTIME WITH INR [COAG] Stat Lab 09/30/16 21:40 Completed PTT [COAG] Stat Lab 09/30/16 21:40 Completed TROPONIN T Stat Lab 09/30/16 21:40 Completed TROPONIN T Stat Lab 10/01/16 00:35 Completed Aspirin Med 09/30/16 21:40 Discontinued 325 mg PO STAT STA Hydromorphone [Dilaudid] Med 09/30/16 22:10 Discontinued 1 mg IV NOW ONE Labetalol Med 09/30/16 22:48 Discontinued 100 mg IV NOW ONE Magnesium Sulfate 2 gm/S.w.i. [Magnesium Sulfate 2 gm/S Med 09/30/16 23:26 Discontinued .w.i] 2 gm in 50 ml IV NOW Ondansetron [Zofran] Med 09/30/16 22:11 Discontinued 4 mg IV NOW ONE EKG [EKG] Stat Ther 09/30/16 21:30 Ordered EKG [EKG] Stat Ther 09/30/16 23:47 Ordered Result Diagrams: 09/30/16 21:40 09/30/16 21:40 - REASSESSMENT Reassessment #1 Time Reassessed: 01:25 (pt is pain free, states his speech while much better is not completely back to normal) Status: improving - EKG 2 Time of EKG reading by physician:: 00:29 EKG Read and Signed by:: Arya Loza EKG Interpretation (*Must complete 3 of following elements*): Normal Rate: 71 Rhythm: NSR Comments: Abnormal ECG, Prolonged QT, st&t wave abnormality Departure - Departure Date of Disposition Decision: 10/01/16 Time of Disposition Decision: 01:26 DIAGNOSIS: Hypertensive emergency, Hypomagnesemia Disposition: ADMITTED INPATIENT 09 Certified Medical Emergency: Emergent Condition: Good Referrals and Follow-Ups: Ever Garcia MD [Primary Care Provider] - - Critical Care Note This patient required my direct & personal management of CC.: No Attestation - Physician/ TONY Attestation Patient care was provided by Advanced Practice Provider:: No The physician spent face to face time with patient:: Yes Advanced Practice Provider documentation review:: Supervising physician onsite and consulted in the evaluation and care of this patient. The physician did have a face to face encounter with the patient. This chart was documented by the indicated scribe, (Antonia Garrison Scribe) and accurately reflects the services I performed and decisions made by me, Arya Loza MD, as attested by the provider's signature.
[2016-10-01] MEDS ORDERED: NORCO-5 PO PRN (03:01)
--- NOTE | 2016-10-01 06:27 | HISTORY AND PHYSICAL ---
PRIMARY CARE PHYSICIAN: Dr. Anthony Garcia. CHIEF COMPLAINT: Headache and difficulty talking. HISTORY OF PRESENTING ILLNESS: A 76-year-old male with a history of hypertension, hyperlipidemia, diabetes mellitus type 2, and chronic low back pain who presented to the emergency department after he had developed severe headache earlier yesterday and was having difficulty getting his words out. The patient states his symptoms seemed to be worsening and subsequently he had come to the emergency department. In the ER, he was evaluated. He had a CAT scan of the head done which was negative. However, his symptoms resembled possibly CVA. Subsequently, he will need admission for further evaluation and management. At the time of my examination, he had denied any nausea vomiting, diarrhea, fever, chills, shortness of breath, hemoptysis, melena or weight changes but did complain of having a headache and still having problems talking. PAST MEDICAL HISTORY: Includes hypertension, hyperlipidemia, diabetes mellitus type 2, and chronic low back pain. PAST SURGICAL HISTORY: Bilateral hip surgery, back surgery, bladder removed and appendectomy. ALLERGIES: To Flagyl. CURRENT MEDICATIONS: As listed in the medication reconciliation sheet. SOCIAL HISTORY: He denies any history of smoking, alcohol or illicit drug use. FAMILY HISTORY: No history of coronary disease. REVIEW OF SYSTEMS: Twelve point review of systems listed as in HPI. Other systems negative. PHYSICAL EXAMINATION: GENERAL: Cooperative and friendly male. He is resting comfortably now. VITAL SIGNS: Pulse 71, respirations 24, and blood pressure 160/70. HEENT: Atraumatic, normocephalic. Extraocular movements intact. PERRLA. NECK: No masses. CHEST: Clear to auscultation. CARDIOVASCULAR: Regular rate and rhythm. ABDOMEN: Soft, obese. Positive bowel sounds. EXTREMITIES: Trace edema. NEUROLOGIC: He is awake, alert, and oriented x3. : No bladder distention. SKIN: Warm. LABORATORIES AND STUDIES: WBC 7.81, hemoglobin 12.1, hematocrit 37.7 and platelets 224,000. Sodium 143, potassium 3.5, chloride 105, CO2 22, BUN is 19, creatinine is 1.1, glucose is 175. Magnesium 0.08. ASSESSMENT: A 76-year-old male with a history of hypertension, hyperlipidemia, diabetes mellitus type 2, chronic low back pain who had presented to the emergency department with a 1-day history of having difficulty getting his words out and having a headache. He was evaluated in the ER. He will be admitted for further stroke work up. 1. Expressive aphasia suspected CVA. 2. Hypomagnesemia. 3. Hypertension. 4. Diabetes mellitus type 2. PLAN: 1. We will admit patient to medical floor with telemetry. 2. Continue with stroke workup. 3. We will schedule patient for MRI and MRA of the head and neck. 4. We will consult Neurology. 5. We will replace his magnesium. 6. We will monitor blood pressure closely and allow permissive hypertension. 7. We will monitor blood glucose and continue with sliding scale insulin regimen. 8. Place patient on DVT prophylaxis with SCD's. 9. We will continue to follow and reassess. cc: Larry Mcdonald MD
--- NOTE | 2016-10-01 07:42 | EKG Report ---
Test Performed on : 10/01/2016 00:29:34 AM Test Reason : cp Blood Pressure : / mmHG Vent. Rate : 071 BPM Atrial Rate : 071 BPM P-R Int : 166 ms QRS Dur : 100 ms QT Int : 442 ms P-R-T Axes : 046 084 -65 degrees QTc Int : 480 ms Normal sinus rhythm. ST \T\ T wave abnormality, consider inferolateral ischemia Prolonged QT Abnormal ECG When compared with ECG of 12-SEP-2012 17:18, QT has lengthened Unconfirmed Result
--- NOTE | 2016-10-01 07:56 | EKG Report ---
Test Performed on : 09/30/2016 9:22:23 PM Test Reason : CP Blood Pressure : / mmHG Vent. Rate : 090 BPM Atrial Rate : 090 BPM P-R Int : 148 ms QRS Dur : 096 ms QT Int : 400 ms P-R-T Axes : 050 087 003 degrees QTc Int : 489 ms Normal sinus rhythm. Nonspecific ST and T wave abnormality Abnormal ECG No previous ECGs available Unconfirmed Result
--- NOTE | 2016-10-01 08:51 | PROGRESS NOTE ---
DATE: 10/01/2016 SUBJECTIVE: Mr. Montaño was admitted to [facility] last night with a severe incapacitating headache complicated by difficulty getting his words out. A CT scan of the brain demonstrated no evidence of parenchymal hemorrhage, subdural hematoma, or hydrocephalus. He was noted to have right sphenoid sinusitis. At the time of his presentation to the ER, he denied any other neurologic symptoms such as sudden loss of vision in 1 eye and unilateral extremity weakness. According to his family, he is speaking more clearly this morning but is not back to his baseline. Blood pressure is trending down. Systolic blood pressures are ranging from 137- 162, whereas his diastolic blood pressures have ranged from 59-76. He denies any chest pain, palpitations, or anginal equivalents. OBJECTIVE: Vital Signs: Temperature 98.3 degrees, pulse 69, respirations 18, BP 160/70. This is a well-developed, well-nourished, 76-year-old gentleman in no apparent distress. He is awake and easily arousable. He is oriented to name, place, and time. CV: Regular rate and rhythm. Lungs clear. Abdomen soft, nontender, with active bowel sounds. Neuro: Cranial nerves 2-12 intact grossly. He has normal tone and strength in the upper and lower extremities. DTRs are 2+ and symmetric. Tongue is midline. Speech is much more fluid according to the family. ASSESSMENT AND PLAN: 1. 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 He has multiple risk factors for cerebral vascular disease. We will continue Plavix and arrange for an MRI of the brain with MRA as well as a carotid ultrasound and a 2D echocardiogram with color Doppler. Further recommendations will be made based upon those results. 2. Hypertension. His blood pressure is still a little bit too high, but I would like to keep his blood pressures in the 150s and 160 systolically in the setting of an apparent acute stroke as to avoid enlargement of the watershed area of the stroke, and we will continue to monitor his blood pressure closely. 3. Type 2 insulin-dependent diabetes mellitus. We will continue 1800 calorie ADA diet, pattern sugars, Humulin R sliding scale, and resume his regular home dosage of Humulin 70/30. cc: Franck Garcia MD
[2016-10-01] MEDS ORDERED: ASPIRIN EC PO SCH (09:00)
[2016-10-01] MEDS ORDERED: AVAPRO PO SCH (09:00)
[2016-10-01] MEDS ORDERED: GABAPENTIN PO SCH (09:00)
[2016-10-01] MEDS ORDERED: COREG PO SCH (09:00)
[2016-10-01] MEDS ORDERED: DEXILANT PO SCH (09:00)
[2016-10-01] MEDS ORDERED: LASIX PO SCH (09:00)
[2016-10-01] MEDS ORDERED: ZYLOPRIM PO SCH (09:00)
[2016-10-01] MEDS ORDERED: TRICOR PO SCH (09:00)
[2016-10-01] MEDS ORDERED: PAXIL PO SCH (09:00)
[2016-10-01] MEDS: WELCHOL PO SCH ×2 (11:20→14:38)
--- NOTE | 2016-10-01 14:59 | CONSULTATION ---
DATE OF CONSULTATION: 10/01/2016 HISTORY OF PRESENT ILLNESS: Mr. Montaño is 76 years old, and there is history of headache, language disturbance, question of stroke or other neurologic event. History from the patient is that he had very intense global headache, mostly frontal, some pounding and throbbing. This was an unusual occurrence for him. noticed late in the day yesterday that he seemed to have trouble finding his words. Initially, she thought this might be because he had just waked from a nap. This persisted for several hours and he eventually presented to the emergency room. Neither patient nor family noticed facial asymmetry, gait difficulty, definite focal weakness or other focal feature. He was never unconscious or unable to respond. He did not seem to have as much trouble understanding what was said to him as he did finding his words. There is no past history of clinical stroke. He has never had a seizure, serious head injury, other neurologic event. He quit smoking cigarettes more than 20 years ago. He has hypertension, dyslipidemia, diabetes mellitus. He was taking his medicines as directed. He had recently been taking aspirin and clopidogrel together, stopped the clopidogrel a few weeks ago for upcoming procedure, continued aspirin. He had made some changes to his blood sugar management a week ago. He had not made any other recent medication changes. He presented with systolic blood pressures in the 190s. He has tolerated conservative blood pressure management here with systolics in the 160s through the day today. He has been afebrile. Lab work showed normal PT, INR 0.99, magnesium 0.8, mildly elevated blood sugars , proBNP 1287, nothing else remarkable on the chemistry profile. He has mild anemia. Initial noncontrast CT of the head is reported to show nothing focal or acute, no bleeding. On exam, Mr. Montaño is awake, alert, attentive. He seems appropriate. Speech is not dysarthric. He has trouble with bedside language tasks requiring repeating pronouns, following complex commands, following commands which require right/left distinction and digit distinction. He did well with naming, including naming parts of objects. His speech was fluent at times and sometimes interrupted by word blocking. Recent and remote memory are good. He is completely oriented. Head and neck are unremarkable. Visual antonio are full tested by confrontational finger counting. Extraocular movements are full. Facial motility is symmetric. Facial sensation is intact to pinprick and light touch testing. Gag is intact. Tongue is midline. Hearing is fair at best. Shoulder shrug is equal. Strength is normal in the legs and in the left arm. I can overcome the right deltoid, which may be due to shoulder joint problem and may not be a definite motor deficit. Otherwise, he has normal power distally in the right arm. Tone is equal in the limbs. He did well on [id number] testing with the left and had slight difficulty with the right. I did not test his gait. Reflexes are 1+ symmetrically at the wrists, absent at the ankles bilaterally. Plantar response is silent bilaterally. He has a stocking pattern of pinprick and light touch loss bilaterally extending close to the knee bilaterally. Proprioception is definitely good at the left great toe and he had some inconsistencies testing proprioception at the right great toe. IMPRESSION: Reported headache, elevated blood pressure, expressive more than receptive dysphasia. His deficit is much improved, but not completely resolved now. Initial negative CT is noted. 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 Family believes that he may have had MRI scan done this morning, but I do not find that report. MRI will be much more likely to show this lesion than was the initial CT. Family believes he may have also had carotid studies and I will check for that report. I do not have any urgent suggestion. I would continue permissive blood pressure elevation, continue treating blood sugar aggressively, continue treating lipids aggressively, continue antiplatelet management. Likely acute ischemic stroke diagnosis is a relative contraindication to elective surgery in the acute phase, and I wonder if he might postpone his upcoming procedure for a few months. No other suggestions right now. Thanks for asking me to see Mr. Montaño. cc: MD Franck Welsh III, MD HU[facility] STATE HOSPITALChauncey
[2016-10-01 15:57] VITALS: BP 161/74
--- NOTE | 2016-10-01 16:30 | Diag Imaging Result Doc PS360 ---
EXAM: MRI BRAIN W W/O CONTRAST, MRA BRAIN W/O CONTRAST INDICATION: stroke COMPARISON: None. MRI BRAIN: FINDINGS: There is no evidence of acute infarct. The most inferior portion of the cerebellum was excluded from the [id number] on the diffusion imaging. However, there is no FLAIR signal abnormality to suggest infarct here either. There is mild patchy T2/FLAIR hyperintensity in the periventricular and subcortical white matter suggesting mild microangiopathy. There is no discrete intracranial mass, mass effect, or intracranial hemorrhage. There is no evidence of abnormal intracranial enhancement. There is sphenoid and mild ethmoid sinus mucosal disease. Surrounding soft tissues and bony structures are essentially unremarkable, otherwise. IMPRESSION: Suggestion of minimal white matter microangiopathy but no evidence of acute intracranial pathology. MRA BRAIN: FINDINGS: There is no evidence of flow-limiting stenosis, vascular malformation, or aneurysm involving the arteries comprising the [place] of [place] including the anterior, middle, and posterior circulations. The basilar artery and distal ICAs are unremarkable. The left distal vertebral artery is mildly dominant, a normal variant. The distal vertebral arteries are unremarkable, otherwise. IMPRESSION: No evidence of flow-limiting stenosis involving the visualized cerebral arteries. Electronically signed by Andrew Edmonds 10/01/2016 4:28 PM
--- NOTE | 2016-10-01 16:30 | Diag Imaging Result Doc PS360 ---
EXAM: MRI BRAIN W W/O CONTRAST, MRA BRAIN W/O CONTRAST INDICATION: stroke COMPARISON: None. MRI BRAIN: FINDINGS: There is no evidence of acute infarct. The most inferior portion of the cerebellum was excluded from the [id number] on the diffusion imaging. However, there is no FLAIR signal abnormality to suggest infarct here either. There is mild patchy T2/FLAIR hyperintensity in the periventricular and subcortical white matter suggesting mild microangiopathy. There is no discrete intracranial mass, mass effect, or intracranial hemorrhage. There is no evidence of abnormal intracranial enhancement. There is sphenoid and mild ethmoid sinus mucosal disease. Surrounding soft tissues and bony structures are essentially unremarkable, otherwise. IMPRESSION: Suggestion of minimal white matter microangiopathy but no evidence of acute intracranial pathology. MRA BRAIN: FINDINGS: There is no evidence of flow-limiting stenosis, vascular malformation, or aneurysm involving the arteries comprising the [place] including the anterior, middle, and posterior circulations. The basilar artery and distal ICAs are unremarkable. The left distal vertebral artery is mildly dominant, a normal variant. The distal vertebral arteries are unremarkable, otherwise. IMPRESSION: No evidence of flow-limiting stenosis involving the visualized cerebral arteries. Electronically signed by Andrew Edmonds 10/01/2016 4:28 PM
[2016-10-01] MEDS ORDERED: HUMULIN 70/30 SUBQ SCH (17:00)
[2016-10-01] MEDS ORDERED: LIPITOR PO SCH (21:00)
--- NOTE | 2016-10-02 11:02 | Carotid Study ---
DATE: 10/01/2016 PROCEDURE: Carotid duplex imaging. REFERRING PHYSICIAN: Larry Mcdonald MD. INTERPRETING PHYSICIAN: Derrick Bonilla MD. TECH: Terrance. INDICATIONS: Stroke. OBSERVED DATA RIGHT LEFT Brachial Blood Pressure Carotid Pulse Bruits: Carotid/Sub DIAGRAM OF ULTRASOUND IMAGING R L RIGHT INT EXT INT EXT LEFT Thomas (cm/s) Thomas (cm/s) Subclavian 92/9 Subclavian 132/0 CCA Proximal 79/12 CCA Proximal 74/12 CCA Distal 95/16 CCA Distal 84/14 Bulb 57/9 Bulb 146/13 ICA Proximal 164/41 ICA Proximal 78/13 ICA Mid 79/20 ICA Mid 57/11 ICA Distal 53/12 ICA Distal 61/18 ECA 91/14 ECA 116/8 Vertebral 42/9 Vertebral 51/13 ICA/CCA Ratio 1.7 ICA/CCA Ratio 0.9 % Stenosis 60-79 % Stenosis 0-39 FINDINGS: There is irregular calcific plaque at the takeoff of the right internal carotid artery producing a stenosis in the 60-79% range. There is a simple-appearing calcific plaque in the left carotid bulb. However, it is not producing a stenosis of significance at this point. INTERPRETATION: Bilateral calcific plaque in the carotid bulbs at the takeoff the internal carotid artery. The right side is more severe and is approaching hemodynamic significance. The left side appears to be only a mild degree of stenosis at this point. A Vascular Surgery consultation should be considered, especially given the history of stroke. cc: MD Larry Hewitt MD M. Neel Roberts, MD
--- NOTE | 2016-10-02 15:44 | ECHO REPORT ---
ORDER DATE: 10/01/2016 ECHOCARDIOGRAPHIC MEASUREMENTS: 1. Left atrium 5.1. 2. Aortic root 3.5. SUMMARY: 1. Technically difficult study due to limited acoustic window quality. 2. Very mild sclerosis of aortic valve demonstrated with normal aortic valve opening evident. Peak gradient across the aortic valve is less than 2 mmHg. Mitral, tricuspid and pulmonic valves are without evidence of structural abnormality. There is mild mitral regurgitation, trace tricuspid regurgitation, and moderate pulmonic insufficiency. Aortic root is normal size. 3. Borderline left ventricular enlargement with mild to moderate concentric left hypertrophy is suggested. Estimated left ejection fraction approximately 40% in a setting of mild global hypokinesis. Doppler suggests grade 1 left ventricular diastolic dysfunction. Left atrium is moderately enlarged. Right atrium and right ventricle are of normal size with grossly preserved right ventricular systolic function. 4. No pericardial effusion. 5. Appearance of inferior vena cava suggests normal central venous pressure. 6. Sinus rhythm during study. cc: MD Larry Rodríguez MD M. Neel Roberts, MD
== END 2016-10-01 17:21 | disposition home or self-care (01) ==
LOC: ED 20:59 → SUATTDRO 10-01 02:37 → 3N 10-01 02:37
PROVIDERS: ADMIT Internal Medicine; ATTEND Internal Medicine